=== PATIENT | female | born 1945 | race Caucasian/White ===

== ENCOUNTER 2021-08-12 10:46 | Inpatient (IN) | payer MEDICARE, BC ==
[~2021-08-12] VITALS: Ht 144.7 cm; Wt 60.3 kg
[~2021-08-12 10:46] MED LIST: APRESOLINE25 MG PO; ASPIRIN CHEWABL81 MG PO; ATIVAN1 MG PO; CLONIDINE0.2 MG PO; CLOPIDOGREL75 MG PO; DORZOLAMIDE 2%10 ML OS; ELIQUIS5 M1 PO; GEODON IM; KLOR-CON 1010 ME1 PO; LATANOPROST2.5 ML OU; LIPITOR40 MG PO; METFORMIN HYDR500 MG PO; RISPERDAL0.5 MG PO; SPIRONOLACTONE PO; TOPROL XL100 MG PO; ZESTRIL10 MG PO
[2021-08-12] MEDS ORDERED: CEFDINIR300 MG PO (14:44)
[2021-08-12 20:00] VITALS: BP 133/98
[2021-08-13 06:20] LABS: POTASSIUM 3.9 mmol/L (3.5-5.1)
[2021-08-13 06:24] LABS: BASO % 0.5 % (0.0-1.0); EOS # 0.1 10*3/uL (0.0-0.4); EOS % 1.5 % (1.0-4.0); HEMATOCRIT 43.4 % (37.0-47.0); LYMPH # 2.7 10*3/uL (1.3-4.4); LYMPH % 35.7 % (27.0-41.0); MEAN CELL VOLUME 90.4 fl (81.0-99.0); MEAN CORPUSCULAR HGB 29.2 pg (27.0-31.0); MEAN CORPUSCULAR HGB CONC 32.3 g/dl (33.0-37.0); MEAN PLATELET VOLUME 10.4 fl (9.6-12.3); MONO # 0.6 10*3/uL (0.1-1.0); MONO % 8.1 % (3.0-9.0); NEUT % 53.9 % (47.0-73.0); PLATELET COUNT AUTOMATED 191 10*3/uL (130-400); RED CELL DISTRI WIDTH 15.1 % (0-14.5); WHITE BLOOD COUNT 7.4 10*3/uL (4.8-10.8)
[2021-08-13 06:35] LABS: CREATININE 1.11 mg/dL (0.55-1.02); THYROID STIM HORMONE (HS) 2.44 uIU/ml (0.358-4.75); TOTAL PROTEIN 6.9 gm/dL (6.4-8.2)
[2021-08-13 07:01] VITALS: BP 114/82
[2021-08-13 07:17] LABS: VITAMIN D, 25-HYDROXY 36.5 ng/mL (30-100)
[2021-08-13 12:18] VITALS: BP 128/76
[2021-08-13 18:57] VITALS: BP 90/57
[2021-08-13 20:02] VITALS: BP 108/62
[2021-08-14 05:56] LABS: BUN 25 mg/dl (7-24); CHLORIDE 106 mmol/L (98-107); CREATININE 1.07 mg/dL (0.55-1.02); POTASSIUM 3.8 mmol/L (3.5-5.1); SODIUM 139 mmol/L (136-145)
[2021-08-14 06:44] VITALS: BP 145/72
[2021-08-14 20:00] VITALS: BP 95/68
[2021-08-15 07:41] VITALS: BP 134/76
[2021-08-15 20:00] VITALS: BP 103/51
[2021-08-16 07:06] VITALS: BP 127/87
[2021-08-16 20:00] VITALS: BP 111/49
[2021-08-17 08:00] VITALS: BP 122/71
[2021-08-17 13:24] VITALS: BP 116/58
[2021-08-17 20:00] VITALS: BP 101/66
[2021-08-18 07:55] VITALS: BP 129/80
[2021-08-18 10:07] LABS: BASO % 0.3 % (0.0-1.0); EOS % 0.2 % (1.0-4.0); HEMATOCRIT 40.6 % (37.0-47.0); LYMPH % 20.7 % (27.0-41.0); MEAN CELL VOLUME 90.6 fl (81.0-99.0); MEAN CORPUSCULAR HGB 29.5 pg (27.0-31.0); MEAN CORPUSCULAR HGB CONC 32.5 g/dl (33.0-37.0); MEAN PLATELET VOLUME 10.7 fl (9.6-12.3); MONO # 0.6 10*3/uL (0.1-1.0); MONO % 5.8 % (3.0-9.0); NEUT % 72.5 % (47.0-73.0); PLATELET COUNT AUTOMATED 175 10*3/uL (130-400); RED BLOOD COUNT 4.48 10*6/uL (4.10-5.10); RED CELL DISTRI WIDTH 15.1 % (0-14.5); WHITE BLOOD COUNT 9.6 10*3/uL (4.8-10.8)
[2021-08-18 10:30] LABS: ALKALINE PHOSPHATASE 60 U/L (45-117); BUN 23 mg/dl (7-24); CHLORIDE 110 mmol/L (98-107); CREATININE 0.93 mg/dL (0.55-1.02); POTASSIUM 4.4 mmol/L (3.5-5.1); SGOT/AST 18 IU/L (3-35); SGPT/ALT 17 U/L (12-78); SODIUM 138 mmol/L (136-145); TOTAL PROTEIN 6.5 gm/dL (6.4-8.2)
[2021-08-18 20:00] VITALS: BP 160/78
[2021-08-19 12:22] VITALS: BP 142/68
[2021-08-19 20:00] VITALS: BP 132/82
[2021-08-20 07:00] VITALS: BP 146/91
[2021-08-20 10:02] LABS: BILIRUBIN Negative (Negative); BLOOD Negative (Negative); CLARITY Cloudy (Clear); COLOR Dark Yellow (Yellow); GLUCOSE Negative (Negative); KETONE Trace (Negative); LEUKO ESTERASE 3+ (Negative); NITRITE Negative (Negative); PH 5.5 (4.5-8.0); SPECIFIC GRAVITY 1.025 (1.001-1.030)
[2021-08-20 10:15] LABS: BASO # 0.1 10*3/uL (0.0-0.1); BASO % 0.6 % (0.0-1.0); EOS # 0.1 10*3/uL (0.0-0.4); EOS % 0.6 % (1.0-4.0); HEMATOCRIT 40.3 % (37.0-47.0); LYMPH % 23.2 % (27.0-41.0); MEAN CELL VOLUME 92.4 fl (81.0-99.0); MEAN CORPUSCULAR HGB 29.8 pg (27.0-31.0); MEAN CORPUSCULAR HGB CONC 32.3 g/dl (33.0-37.0); MEAN PLATELET VOLUME 10.8 fl (9.6-12.3); MONO # 0.6 10*3/uL (0.1-1.0); MONO % 7.2 % (3.0-9.0); NEUT # 5.9 10*3/uL (2.3-7.9); NEUT % 67.8 % (47.0-73.0); PLATELET COUNT AUTOMATED 185 10*3/uL (130-400); RED BLOOD COUNT 4.36 10*6/uL (4.10-5.10); RED CELL DISTRI WIDTH 15.4 % (0-14.5); WHITE BLOOD COUNT 8.7 10*3/uL (4.8-10.8)
[2021-08-20 10:43] LABS: ALKALINE PHOSPHATASE 59 U/L (45-117); BUN 20 mg/dl (7-24); CHLORIDE 111 mmol/L (98-107); CREATININE 1.06 mg/dL (0.55-1.02); POTASSIUM 4.2 mmol/L (3.5-5.1); SGOT/AST 18 IU/L (3-35); SGPT/ALT 19 U/L (12-78); SODIUM 141 mmol/L (136-145); TOTAL PROTEIN 6.2 gm/dL (6.4-8.2)
[2021-08-20 11:54] LABS: BACTERIA 1+; WBC 31-40 wbc/hpf (0-5); YEAST 1+
[2021-08-20 20:00] VITALS: BP 133/59
[2021-08-20 21:25] LABS: BASO # 0.1 10*3/uL (0.0-0.1); BASO % 0.6 % (0.0-1.0); EOS # 0.1 10*3/uL (0.0-0.4); EOS % 1.4 % (1.0-4.0); HEMATOCRIT 41.7 % (37.0-47.0); LYMPH # 2.9 10*3/uL (1.3-4.4); LYMPH % 32.4 % (27.0-41.0); MEAN CELL VOLUME 90.7 fl (81.0-99.0); MEAN CORPUSCULAR HGB 29.1 pg (27.0-31.0); MEAN CORPUSCULAR HGB CONC 32.1 g/dl (33.0-37.0); MEAN PLATELET VOLUME 10.7 fl (9.6-12.3); MONO # 0.8 10*3/uL (0.1-1.0); MONO % 8.7 % (3.0-9.0); NEUT % 56.3 % (47.0-73.0); PLATELET COUNT AUTOMATED 178 10*3/uL (130-400); RED CELL DISTRI WIDTH 15.5 % (0-14.5); WHITE BLOOD COUNT 8.9 10*3/uL (4.8-10.8)
[2021-08-20 21:33] LABS: ABG BASE EXCESS -3.8 mmol/L (-2.0-2.0); ARTERIAL BLOOD GAS PH 7.425 (7.35-7.45); ARTERIAL BLOOD GAS PO2 75.5 (80-90)
[2021-08-20 21:41] LABS: BUN 20 mg/dl (7-24); CHLORIDE 113 mmol/L (98-107); CREATININE 0.92 mg/dL (0.55-1.02); POTASSIUM 3.9 mmol/L (3.5-5.1); SGOT/AST 26 IU/L (3-35); SGPT/ALT 21 U/L (12-78); SODIUM 142 mmol/L (136-145)
[2021-08-20 21:42] LABS: ALKALINE PHOSPHATASE 73 U/L (45-117); CPK 44 U/L (26-192); TOTAL PROTEIN 6.4 gm/dL (6.4-8.2)
[2021-08-20] MEDS ORDERED: EXELON1 EAC2 T (22:12)
[2021-08-20] MEDS ORDERED: GEODON20 MG/1 ML IM (22:15)
[2021-08-20] MEDS ORDERED: NAMENDA10 MG PO (22:16)
[2021-08-20] MEDS ORDERED: REMERON15 M2 PO (22:17)
[2021-08-21] MEDS ORDERED: ALDACTONE25 MG PO (00:07)
[2021-08-21] MEDS ORDERED: ATIVAN1 MG PO (07:39)
== END 2021-08-20 23:37 | disposition short-term general hospital (02) | DRG 883 ==
LOC: 3N 10:46
PROVIDERS: Counselor Professional; Internal Medicine; Registered Nurse; ADMIT Psychiatry & Neurology Psychiatry; ATTEND Psychiatry & Neurology Psychiatry
DX: F63.81 Intermittent explosive disorder (principal); N17.0 Acute kidney failure with tubular necrosis; I11.0 Hypertensive heart disease with heart failure; E11.65 Type 2 diabetes mellitus with hyperglycemia; G93.41 Metabolic encephalopathy; N30.00 Acute cystitis without hematuria; F02.81 Dementia in other diseases classified elsewhere, unspecified severity, with behavioral disturbance; Z20.822 Contact with and (suspected) exposure to COVID-19; I50.9 Heart failure, unspecified; I25.10 Atherosclerotic heart disease of native coronary artery without angina pectoris; G47.33 Obstructive sleep apnea (adult) (pediatric); F43.23 Adjustment disorder with mixed anxiety and depressed mood; G30.9 Alzheimer's disease, unspecified; Z66 Do not resuscitate; Z51.5 Encounter for palliative care; Z83.3 Family history of diabetes mellitus; Z82.49 Family history of ischemic heart disease and other diseases of the circulatory system; Z82.3 Family history of stroke

== ENCOUNTER 2021-08-20 23:43 | Inpatient (IN) | payer MEDICARE, BC ==
[~2021-08-20] VITALS: Ht 165.1 cm; Wt 61.7 kg
[~2021-08-20 23:43] MED LIST changes: +CEFDINIR300 MG PO; +EXELON1 EAC2 T; +GEODON20 MG/1 ML IM; +NAMENDA10 MG PO; +REMERON15 M2 PO
[2021-08-21] MEDS ORDERED: ALDACTONE25 MG PO (00:07)
[2021-08-21 00:15] VITALS: BP 139/80
[2021-08-21] MEDS ORDERED: ATIVAN1 MG PO (07:39)
[2021-08-21 08:00] VITALS: BP 142/80
[2021-08-21 12:00] VITALS: BP 115/60
== END 2021-08-21 20:27 | disposition hospice, home (50) | DRG 690 ==
LOC: 4E 23:43
PROVIDERS: ADMIT Emergency Medicine; ATTEND Emergency Medicine
DX: N39.0 Urinary tract infection, site not specified (principal); E44.1 Mild protein-calorie malnutrition; F03.91 Unspecified dementia, unspecified severity, with behavioral disturbance; I48.21 Permanent atrial fibrillation; F63.81 Intermittent explosive disorder; E87.8 Other disorders of electrolyte and fluid balance, not elsewhere classified; E83.39 Other disorders of phosphorus metabolism; I50.9 Heart failure, unspecified; I25.10 Atherosclerotic heart disease of native coronary artery without angina pectoris; E11.65 Type 2 diabetes mellitus with hyperglycemia; I11.0 Hypertensive heart disease with heart failure; M19.90 Unspecified osteoarthritis, unspecified site; G47.33 Obstructive sleep apnea (adult) (pediatric); F41.9 Anxiety disorder, unspecified; Z90.710 Acquired absence of both cervix and uterus; Z95.1 Presence of aortocoronary bypass graft; Z82.49 Family history of ischemic heart disease and other diseases of the circulatory system; Z83.3 Family history of diabetes mellitus; Z82.3 Family history of stroke; Z79.82 Long term (current) use of aspirin; Z79.899 Other long term (current) drug therapy; Z68.28 Body mass index [BMI] 28.0-28.9, adult